=== PATIENT | male | born 1990 | race Two or more races ===

== ENCOUNTER 2016-09-20 11:07 | Emergency (ER) | payer MEDICAID ==
[~2016-09-20] VITALS: Ht 172.7 cm; Wt 72.6 kg
[2016-09-20 11:10] VITALS: BP 138/82
[2016-09-20] MEDS ORDERED: Haloperidol 5mg/ml Inj IM ONE (11:15)
[2016-09-20 12:29] LABS: BASOPHILS % (AUTO) 1.3 % (0.0-2.0); EOSINOPHILS % (AUTO) 1.3 % (0.0-3.0); LYMPHOCYTES % (AUTO) 20.1 % (20.0-45.0); MEAN CORPUSCULAR HEMOGLOBIN 29.2 PG (27.0-31.0); MEAN CORPUSCULAR VOLUME 86 FL (80-99); MEAN PLATELET VOLUME 5.8 FL (6.5-10.1); MONOCYTES % (AUTO) 7.7 % (1.0-10.0); NEUTROPHILS % (AUTO) 69.5 % (45.0-75.0); PLATELET COUNT 348 K/UL (150-450); RED BLOOD COUNT 5.69 M/UL (4.70-6.10); WHITE BLOOD COUNT 6.6 K/UL (4.8-10.8)
[2016-09-20 12:43] LABS: ACETAMINOPHEN < 10 ug/mL (10-30); ALANINE AMINOTRANSFERASE 17 U/L (3-41); ALBUMIN/GLOBULIN RATIO 1.8 (1.0-2.7); ALCOHOL < 10 mg/dL; ANION GAP 14 (5-15); ASPARTATE AMINO TRANSFERASE 20 U/L (5-40); CALCIUM 9.9 mg/dL (8.6-10.2); CARBON DIOXIDE 26 mEQ/L (20-30); CHLORIDE 103 mEQ/L (98-107); CREATININE 0.8 mg/dL (0.7-1.2); GLOMERULAR FILTRATION RATE > 60 mL/min (>60); HEMOLYSIS 8; POTASSIUM 3.6 mEQ/L (3.4-4.9); SODIUM 143 mEQ/L (135-145); TOTAL PROTEIN 7.5 g/dL (6.6-8.7)
--- NOTE | 2016-09-20 14:35 | Consultation ---
History of Present Illness General Chief Complaint: Behavioral Complaint Present Illness HPI 25 yo urdu speaking male with hx of substance use disorder and alcohol. he was hounf naked in the street, confused and disorganized. the pt was calm during my evaluation. He stated that he was hungry and was given food. the pt thanked god for that. the pt was not agitated, he was covered in hospital gown. he didn't attempt to disrobe. the pt asked to be discharged home. he stated that he is from [facility] [place]. he has his uncle and brother here. he asked for his phone. he denied any psychiatric history. he denied being on 5150. he denied ever seeing a psychiatrist. he denied being on any psychotropics. He denied using drugs. he denied being suicidal/homicidal. the pt was observed for several hours and was calm cooperative. no psychotic sxs. he has family in [facility] that he supports. 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 He stated that he had a nightmare therefore he was naked in the street. Allergies: Coded Allergies: No Known Allergies (Unverified , 09/20/16) Patient History History Provided By: Patient, Medical Record Healthcare decision maker Resuscitation status Advanced Directive on File Review of Systems Psychiatric: Reports: emotional problems Physical Exam General Appearance: alert, thin Neurologic: alert, oriented x 3, responsive, normal mood/affect Last 24 Hour Vital Signs Date Time Temp Pulse Resp B/P Pulse Ox O2 Delivery O2 Flow Rate FiO2 09/20/16 10:59 99.1 90 18 138/82 98 Room Air Laboratory Tests Test 09/20/16 11:50 09/20/16 12:05 Urine Opiates Screen Negative (NEGATIVE) Urine Barbiturates Screen Negative (NEGATIVE) Phencyclidine (PCP) Screen Negative (NEGATIVE) Urine Amphetamines Screen Negative (NEGATIVE) Urine Benzodiazepines Screen Negative (NEGATIVE) Urine Cocaine Screen Negative (NEGATIVE) Urine Marijuana (THC) Screen Negative (NEGATIVE) White Blood Count 6.6 K/UL (4.8-10.8) Red Blood Count 5.69 M/UL (4.70-6.10) Hemoglobin 16.6 G/DL (14.2-18.0) Hematocrit 48.7 % (42.0-52.0) Mean Corpuscular Volume 86 FL (80-99) Mean Corpuscular Hemoglobin 29.2 PG (27.0-31.0) Mean Corpuscular Hemoglobin Concent 34.0 G/DL (32.0-36.0) Red Cell Distribution Width 11.0 % (11.6-14.8) L Platelet Count 348 K/UL (150-450) Mean Platelet Volume 5.8 FL (6.5-10.1) L Neutrophils (%) (Auto) 69.5 % (45.0-75.0) Lymphocytes (%) (Auto) 20.1 % (20.0-45.0) Monocytes (%) (Auto) 7.7 % (1.0-10.0) Eosinophils (%) (Auto) 1.3 % (0.0-3.0) Basophils (%) (Auto) 1.3 % (0.0-2.0) Sodium Level 143 mEQ/L (135-145) Potassium Level 3.6 mEQ/L (3.4-4.9) Chloride Level 103 mEQ/L (98-107) Carbon Dioxide Level 26 mEQ/L (20-30) Anion Gap 14 (5-15) Blood Urea Nitrogen 9 mg/dL (7-23) Creatinine 0.8 mg/dL (0.7-1.2) Estimat Glomerular Filtration Rate > 60 mL/min (>60) Glucose Level 108 mg/dL (74-106) H Calcium Level 9.9 mg/dL (8.6-10.2) Total Bilirubin 0.9 mg/dL (0.0-1.2) Aspartate Amino Transf (AST/SGOT) 20 U/L (5-40) Alanine Aminotransferase (ALT/SGPT) 17 U/L (3-41) Alkaline Phosphatase 67 U/L (40-129) Total Protein 7.5 g/dL (6.6-8.7) Albumin 4.9 g/dL (3.5-5.2) Globulin 2.6 g/dL Albumin/Globulin Ratio 1.8 (1.0-2.7) Salicylates Level < 1 mg/dL (10-30) L Acetaminophen Level < 10 ug/mL (10-30) L Serum Alcohol < 10 mg/dL Height (Feet): 5 Height (Inches): 8.00 Weight (Pounds): 160 Assessment/Plan Status: stable Assessment/Plan psychotic d/o nos -the pt will dc as he is not on a dts/dto -the pt is going to call family to pick him up Fatuma Sanders M.D. Sep 20, 2016 14:35
[2016-09-20 16:16] VITALS: BP 108/63
--- NOTE | 2016-09-21 07:05 | Emergency Room Report ---
History of Present Illness General Chief Complaint: Behavioral Complaint Source: Patient, Medical Record Present Illness HPI Patient is a 25-year-old male who presented after increased bizarre behavior. Patient was brought in by EMS. He was noted to be [place] in a [place] neighborhood. Patient was brought in by EMS after 911 was contacted. Patient denied any complaints. He reported feeling like the end of the world is near. Patient had denied use of alcohol or drugs. The patient states he has a place to live. The patient denies any current headache or nausea or recent fever Allergies: Coded Allergies: No Known Allergies (Unverified , 09/20/16) Patient History Past Medical History: see triage record Reviewed Nursing Documentation: PMH: Agreed, PSxH: Agreed Nursing Documentation-PMH Past Medical History: No Stated History Review of Systems All Other Systems: negative except mentioned in HPI Physical Exam Vital Signs Date Time Temp Pulse Resp B/P Pulse Ox O2 Delivery O2 Flow Rate FiO2 09/20/16 10:59 99.1 90 18 138/82 98 Room Air Sp02 EP Interpretation: reviewed, normal General Appearance: alert/responsive, no apparent distress, GCS 15, non-toxic Head: atraumatic Eyes: PERRL, lids + conjunctiva normal ENT: hearing intact, no angioedema Neck: supple/symm/no masses, no meningismus Respiratory: effort normal, no wheezing, chest symmetrical Cardiovascular: regular rate, rhythm, no edema Cardiovascular #2: 2+ carotid (R), 2+ carotid (L), 2+ dorsalis pedis (R), 2+ dorsalis pedis (L) Gastrointestinal: non-tender, no mass, non-distended, no rebound/guarding, normal bowel sounds Musculoskeletal: gait & station normal, strength & tone normal, normal ROM, non -tender Neurologic: normal inspection, CN II-XII intact, oriented x3, sensory intact, normal speech Psychiatric: normal inspection, memory normal, mood normal, affect normal Skin: no rash, well hydrated Lymphatic: normal inspection Medical Decision Making Diagnostic Impression: Primary Impression: Psychosis ER Course Patient presented for bizarre behavior. Differential diagnoses include substance abuse, psychosis, bipolar disorder, depression, malingering. The patient had a benign exam and didn't appear to have any medical issues at this time. Psychiatric consult is obtained from . Patient was seen by Dr. Sanders. The patient was felt not to be criteria for inpatient management and involuntary hold. The patient was given outpatient psychiatric referrals. Last Vital Signs Date Time Temp Pulse Resp B/P Pulse Ox O2 Delivery O2 Flow Rate FiO2 09/20/16 16:16 78 20 108/63 99 Room Air 09/20/16 11:10 99.1 Status: improved Disposition: HOME, SELF-CARE Condition: Stable Patient Instructions: Psychosis Garcia Lopez Sep 21, 2016 07:05
== END 2016-09-20 16:16 | disposition home or self-care (01) ==
LOC: EDBD 11:07 → EMR 11:20
DX: F29 Unspecified psychosis not due to a substance or known physiological condition (principal)
CPT/HCPCS: 36415; 80053; 80300; 80329; 85025; 96372; 99283; J1630